=== PATIENT | female | born 1955 | race Caucasian/White ===

== ENCOUNTER 2020-12-21 18:02 | Inpatient (IN) | payer MEDICARE, OTHER ==
[~2020-12-21] VITALS: Ht 160 cm; Wt 82.4 kg
[2020-12-21] MEDS ORDERED: ALBUTEROL (0.083%) 2.5MG/3ML NEB HHN STA (18:16)
[2020-12-21] MEDS ORDERED: IPRATROPIUM BROMIDE (0.02%) 0.5MG/2.5ML NEB HHN STA (18:16)
[2020-12-21] MEDS ORDERED: PREDNISONE 20MG TABLET PO ONE (18:30)
[2020-12-21 19:07] LABS: BASOPHILS % 0.3 % (0.0-2.0); HEMATOCRIT. 35.2 % (36.0-48.0); HEMOGLOBIN. 11.9 g/dL (12.0-16.0); LYMPHOCYTES % 13.9 % (20.0-50.0); MEAN CORPUSCULAR HEMOGLOBIN 32.3 pg (28.0-32.0); MEAN CORPUSCULAR VOLUME 95.3 fL (81.0-99.0); MONOCYTES % 10.2 % (2.0-8.0); NEUTROPHILS % 74.6 % (40.0-76.0); PLATELET 191 x1000/uL (130-400); RED BLOOD CELL COUNT 3.69 mill/uL (4.2-5.4)
[2020-12-21 19:15] LABS: CHLORIDE 108 mEq/L (98-107)
[2020-12-21] MEDS ORDERED: ACETAMINOPHEN 325MG TABLET PO PRN ×2 (23:15)
[2020-12-21] MEDS ORDERED: ONDANSETRON HCL 4MG/2ML INJ IV PRN (23:15)
[2020-12-21] MEDS ORDERED: IPRATROPIUM/ALBUTEROL 0.5-3(2.5)MG/3ML NEB HHN PRN (23:15)
[2020-12-21] MEDS ORDERED: ZOLPIDEM TARTRATE 5MG TABLET PO PRN (23:15)
[2020-12-21] MEDS ORDERED: DIPHENHYDRAMINE 50MG/ML VIAL IV PRN (23:15)
[2020-12-21] MEDS ORDERED: GUAIFENESIN 200MG/10ML SUGAR FREE UDC PO PRN (23:15)
[2020-12-21] MEDS ORDERED: CLONIDINE 0.1MG TABLET PO PRN (23:15)
[2020-12-21] MEDS ORDERED: MAGNESIUM/ALUMINUM HYDROXIDE/SIMETHICONE 30ML UDC PO PRN (23:15)
[2020-12-22] VITALS (7 sets, daily range): BP systolic 107–132; BP diastolic 55–83
[2020-12-22] MEDS ORDERED: B50 MT (01:19)
[2020-12-22] MEDS ORDERED: PROP10TA10 MT (01:26)
[2020-12-22] MEDS ORDERED: ALBU18HF2 IH (01:26)
[2020-12-22] MEDS ORDERED: RISP2TAB85 MT (01:26)
[2020-12-22] MEDS ORDERED: HYDR50SY PO (01:26)
[2020-12-22] MEDS ORDERED: OLAN20TA34 MT (01:30)
[2020-12-22] MEDS ORDERED: OLAN10TA19 MT (01:30)
[2020-12-22] MEDS ORDERED: LITH300C3 MT (01:30)
[2020-12-22] MEDS: IPRATROPIUM/ALBUTEROL 0.5-3(2.5)MG/3ML NEB HHN SCH ×5 (02:35→20:40)
[2020-12-22] MEDS: METHYLPREDNISOLONE SOD SUCC 125 MG/2 ML VIAL IV SCH ×3 (03:18→18:18)
[2020-12-22] MEDS: SODIUM CHLORIDE 0.9% INJ 3ML FLUSH IVF SCH ×2 (06:03→21:38)
[2020-12-22] MEDS: FAMOTIDINE 20MG TABLET PO SCH ×2 (10:01→20:12)
[2020-12-22] MEDS: ENOXAPARIN 40MG/0.4ML SYR SUBCUT SCH (10:14)
[2020-12-22] MEDS: LITHIUM CARBONATE 150 MG CAPSULE PO SCH (17:00)
[2020-12-22] MEDS: OLANZAPINE 10MG TABLET PO SCH (20:19)
[2020-12-22] MEDS: RISPERIDONE 1MG TABLET PO SCH (20:19)
[2020-12-23] VITALS: BP 142/76
[2020-12-23] MEDS: METHYLPREDNISOLONE SOD SUCC 125 MG/2 ML VIAL IV SCH ×3 (03:31→18:21)
[2020-12-23] MEDS: SODIUM CHLORIDE 0.9% INJ 3ML FLUSH IVF SCH ×3 (05:39→21:23)
[2020-12-23] MEDS: IPRATROPIUM/ALBUTEROL 0.5-3(2.5)MG/3ML NEB HHN SCH ×3 (07:16→21:08)
[2020-12-23 08:28] VITALS: BP 118/63
[2020-12-23] MEDS: HYDROXYZINE 25MG TABLET PO PRN ×3 (08:49→21:24)
[2020-12-23] MEDS: OLANZAPINE 10MG TABLET PO SCH ×2 (08:49→21:23)
[2020-12-23] MEDS: LITHIUM CARBONATE 150 MG CAPSULE PO SCH ×2 (08:50→17:19)
[2020-12-23] MEDS: ENOXAPARIN 40MG/0.4ML SYR SUBCUT SCH (08:52)
[2020-12-23 12:00] VITALS: BP 126/65
[2020-12-23] MEDS: FAMOTIDINE 20MG TABLET PO SCH ×2 (12:51→21:24)
[2020-12-23 16:06] VITALS: BP 121/69
[2020-12-23 20:00] VITALS: BP 132/81
[2020-12-23] MEDS: RISPERIDONE 1MG TABLET PO SCH (21:24)
[2020-12-24] VITALS: BP 117/73
[2020-12-24] MEDS: METHYLPREDNISOLONE SOD SUCC 125 MG/2 ML VIAL IV SCH ×2 (02:16→11:45)
[2020-12-24] MEDS: IPRATROPIUM/ALBUTEROL 0.5-3(2.5)MG/3ML NEB HHN SCH ×4 (02:41→14:35)
[2020-12-24 04:00] VITALS: BP 140/88
[2020-12-24] MEDS: SODIUM CHLORIDE 0.9% INJ 3ML FLUSH IVF SCH ×2 (05:06→13:48)
[2020-12-24 08:00] VITALS: BP 111/73
[2020-12-24] MEDS: ENOXAPARIN 40MG/0.4ML SYR SUBCUT SCH (08:38)
[2020-12-24] MEDS: FAMOTIDINE 20MG TABLET PO SCH (08:38)
[2020-12-24] MEDS: HYDROXYZINE 25MG TABLET PO PRN ×2 (08:38→15:43)
[2020-12-24] MEDS: OLANZAPINE 10MG TABLET PO SCH (08:38)
[2020-12-24] MEDS: LITHIUM CARBONATE 150 MG CAPSULE PO SCH (08:38)
[2020-12-24 12:00] VITALS: BP 132/80
[2020-12-24 15:18] VITALS: BP 132/80
[2020-12-24 16:15] VITALS: BP 134/73
== END 2020-12-24 17:15 | disposition home or self-care (01) | DRG 189 ==
LOC: ER 18:02 → ENRESERV 20:59 → 5WST 12-22 00:01
PROVIDERS: ADMIT Internal Medicine; ATTEND Internal Medicine
DX: J96.01 Acute respiratory failure with hypoxia (principal); I31.3 Pericardial effusion (noninflammatory); J44.1 Chronic obstructive pulmonary disease with (acute) exacerbation; J91.8 Pleural effusion in other conditions classified elsewhere; F31.9 Bipolar disorder, unspecified; F20.9 Schizophrenia, unspecified; F41.9 Anxiety disorder, unspecified; I77.819 Aortic ectasia, unspecified site; F17.210 Nicotine dependence, cigarettes, uncomplicated; D64.9 Anemia, unspecified; Z66 Do not resuscitate; Z79.899 Other long term (current) drug therapy; Z99.81 Dependence on supplemental oxygen; Z79.51 Long term (current) use of inhaled steroids
CPT/HCPCS: 36415; 71045; 71275; 80048; 80076; 83605; 84145; 84484; 85025; 93005; 94618; 94640; 94644; 97162; 99291; J1650; J2930; J7512